=== PATIENT | female | born 1985 | race Asian ===

== ENCOUNTER 2023-04-26 13:30 | Outpatient (CLI) | payer OTHER ==
[~2023-04-26] VITALS: Ht 160 cm; Wt 72.7 kg
--- NOTE | 2023-04-26 13:42 | NUR ---
PT AMBULATORY TO LR5. CHANGED INTO CLEAN GOWN. FHR MONITOR/TOCO APPLIED. PT DENIES ANY REGULAR CONTRACTIONS, DECREASED MOVEMENT, OR LEAKING OF FLUID. PT CAME IN COMPLAINING OF VAGINAL BLEEDING. THIS RN DOES CERVICAL EXAM. SVE /-2. THIS RN NOTES CHUNKY BLOODY VAGINAL DISCHARGE ON EXAM GLOVE.
[2023-04-26] MEDS ORDERED: PRENATAL TABLET PO (13:56)
[2023-04-26 14:30] VITALS: BP 121/80; PULSE 106; TEMP 97.6
--- NOTE | 2023-04-26 16:35 | NUR ---
THIS RN REPEATS SVE. SVE 1-2//-2. CHUNKY VAGINAL DISCHARGE NOTED ON EXAM GLOVE. NO BLOODY SHOW OR VAGINAL BLEEDING ON CHUCKS PAD. [address] CARRENO WITH UPDATE. DR CARRENO GIVES ORDERS TO DISCHARGE PT HOME.
== END 2023-04-26 16:57 | disposition home or self-care (01) ==
LOC: LDRO 13:30
DX: O46.93 Antepartum hemorrhage, unspecified, third trimester (principal); Z3A.38 38 weeks gestation of pregnancy

== ENCOUNTER 2023-04-27 03:44 | Inpatient (IN) | payer OTHER ==
[~2023-04-27] VITALS: Ht 160 cm; Wt 72.7 kg
[2023-04-27] VITALS (34 sets, daily range): BP systolic 104–134; BP diastolic 51–78; PULSE 71–125; TEMP 97.7–98.7
[~2023-04-27 03:44] MED LIST: PRENATAL TABLET PO
[2023-04-27 05:40] LABS: BASO % 0.1 % (0.0-2.0); EOS # 0.1 K/mm3 (0.0-0.7); EOS % 0.7 % (0.0-4.0); GRAN # 4.2 K/mm3 (1.4-6.5); GRAN % 59.6 % (42.2-75.2); HEMATOCRIT 38.5 % (37.0-47.0); HEMOGLOBIN 13.2 g/dl (12.5-16.0); LYMPH # 2.2 K/mm3 (1.2-3.4); LYMPH % 30.8 % (20.0-51.0); MEAN CELL VOLUME 90 fl (80.0-100.0); MEAN CORPUSCULAR HEMOGLOBIN 31 pg (27-31); MEAN CORPUSCULAR HGB CONC 34 g/dl (33.0-37.0); MEAN PLATELET VOLUME 8.7 fl (7.4-10.4); MONO # 0.6 K/mm3 (0.1-0.6); MONO % 8.4 % (1.7-9.3); PLATELET COUNT 216 K/mm3 (130-400); REDCELL DISTRIBUTION WIDTH-CV 12.9 % (11.5-14.5)
--- NOTE | 2023-04-27 06:08 | NUR ---
0541- PATIENT SITTING ON EDGE OF BED. DIFFICULTY TRACING HEART RATE DUE TO MATERNAL POSITIOINING. PULSE OX APPLIED. 0548- ELIZABET OSPINA AT BEDSIDE. EXPLAINS PROCEDURE AND RISK OF EPIDURAL. 0603- TEST DOSE ADMINISTERED BY ELIZABET OSPINA. SEE ANESTHESIA RECORDS. 0608- PATIENT REPOSITIONED TO [facility]. PLAN OF CARE AND SAFETY PRECAUTIONS EXPLAIINED TO PATIENT AND .
--- NOTE | 2023-04-27 07:45 | NUR ---
0736- Dr Garcia at bedside. Discusses POC, answers questions.
--- NOTE | 2023-04-27 09:45 | NUR ---
SVE by this RN, Complete/0 station. Practive push x1, small amount of movement of head. Pt prepped for pushing. Sullivan removed without difficulty. Pt begins pushing with UCs, this RN remains at bedside with Pt, monitoring FHR tracing at bedside.
--- NOTE | 2023-04-27 10:15 | NUR ---
1002- Pt complains of exhaustion and not being able to push due to terrible pressure at diaphram, Pt requests pushing break. Pt assisted to LL with RLS.
--- NOTE | 2023-04-27 10:30 | NUR ---
1020- Pt calls this RN to bedside. Pt ready to push again. Pt assisted to lithotomy. Begins pushing with UCs. Minimal movement of head noted with most pushes, occationally has good movement. Pt continues to complain of exhaustion and upper abd pressure with pushing. 1030- Assisted Pt to for side-lying pushing. No change in pushing progress.
--- NOTE | 2023-04-27 11:15 | NUR ---
1100- Dr Garcia at bedside. US performed for positioning. evaluates pushing x1 UC. After discussion Pt wants to procede with vacuum assisted delivery. Pt and room prepped for delivery. Fuentes Monsivais, discharge specialist and Sera Capellan, nursery RN at bedside. 1112- S.cath with red korey by Dr Garcia. 1114- Vacuum placed on head without suction applied. 1116- Pt begins pushing with UC. Pressure into green area and traction noted by MD. 1117- VAD of viable male . Tended to by nursery on mother's abd. 1120- of placenta. Pitocin restarted at 333ml/hr. Fundas massaged to firm by . Laceration repaired. Pericare performed by this RN. Clean chux and ice pack under Pt. Pt tolerated delivery well. Infant remains [id number] with mother.
--- NOTE | 2023-04-27 14:00 | NUR ---
1400- Pt ambulates to bathroom independently with this RN standby. Voids 150mls. Pericare completed and explained. Pt ambulates to PP room with this RN, oriented to room. Call light at bedside.
--- NOTE | 2023-04-27 15:45 | NUR ---
154- Pt calls this RN to bedside, Pt on toilet. States she feels like she is full but only voided 200mls. Pt encouraged to return to bed and bladder scanner explained. 1550- Bladder scanner showed >650mls. 1600- Straight cath without difficutly. Bilateral labia swollen. 850mls noted. Pericare compelted. Pt encouraged to drink water and continue to use ice packs frequently.
[2023-04-28 03:26] VITALS: BP 118/65; PULSE 78; TEMP 98.5
[2023-04-28 07:25] LABS: HEMOGLOBIN 11.3 g/dl (12.5-16.0)
[2023-04-28 07:26] LABS: HEMATOCRIT 33.7 % (37.0-47.0)
[2023-04-28] MEDS ORDERED: ROXICODONE 55 MG/TAB PO (08:28)
[2023-04-28] MEDS ORDERED: IBU600 MG PO (08:28)
[2023-04-28] MEDS ORDERED: TYLENOL 500MG500 MG PO (08:29)
[2023-04-28 08:30] VITALS: BP 103/56; PULSE 65; TEMP 97.7
--- NOTE | 2023-04-28 09:37 | NUR ---
Initial visit; Patient thanked Riveting Machine Operator Automatic for stopping and offering congratulations for the of her son. Riveting Machine Operator Automatic thanked patient for choosing our hospital.
[2023-04-28 17:15] VITALS: BP 110/53; PULSE 74; TEMP 97.8
[2023-04-28 19:30] VITALS: BP 105/52; PULSE 81; TEMP 98
[2023-04-29 06:10] VITALS: BP 99/53; PULSE 84; TEMP 98
[2023-04-29 07:04] VITALS: BP 106/74; PULSE 76; TEMP 98.2
--- NOTE | 2023-04-29 09:51 | NUR ---
0900 CARSEAT STRAPS NOT IN CARSEAT PROPERLY. CARSEAT PUT BACK TOGETHER BY Chalino SANTIAGO RN BUT LOOKED FOR EXPIRATION AND CARSEAT IN 2018. CARSEAT TAKEN BACK TO PATIENT AND EXPLAINED THAT THEY NEED NEW CARSEAT BEFORE I CAN DISMISS HOME. PATIENT AND MOTHER DISCUSSING IN DIFFERENT LANGUAGE BUT STATED SHE VERBALLY UNDERSTOOD ME. PATIENT WILL CALL NOW. 0915 SHOWED UP TO OUR UNIT WITH NO CARSEAT. EXPLAINED TO PATIENT AGAIN THAT WE NEED A NEW CARSEAT THAT IS NOT BEFORE I CAN DISMISS TO HOME. SOCIAL SERVICE CALLED AT THIS TIME TO EXPLAIN NEED FOR CARSEAT. SHE CALLED [facility] AND THEY HAVE A CARSEAT BUT DAD WILL HAVE TO GO GET IT DUE TO NO OFFICER ABOUT TO BRING IT TO HOSPITAL. JUST TO UNIT WITH CARSEAT THAT THEY BORROWED FROM A FRIEND. PATIENT DOES NOT WANT TO WAIT OR GO GET CARSEAT. PATIENT STATES THEY WILL GO HOME NOW WITH THIS CARSEAT THAT BORROWED AND WILL GET NEW ONE LATER. PATIENT VERY UPSET. 0948 BABY PLACED IN BORROWED CARSEAT AND STRAPS ADJUSTED BY THIS NURSE AND TEACHING DONE WITH FAMILY. PATIENT HAS VERBAL UNDERSTANDING BUT APPEARS VERY UPSET. 0950 PATIENT FAMILY AND BABY SECURED IN CARSEAT WALKED TO CAR BY UNIT [employer] AND PROPERLY PLACED IN CAR AT THIS TIME.
--- NOTE | 2023-04-29 15:29 | NUR ---
Forestry And Wildlife Manager was contacted by JUAN Roger who advised patient is ready to discharge with her baby, however their carseat appeared to be broken and was also . Acacia advised family was not willing to go purchase another carseat as they were worried about the weather and wanted to leave immediately. JAREN contacted [facility] [employer] and was able to secure a new carseat for patient, however there was not an officer to deliver it to patient's room until later. [facility] Dispatcher, Amada advised family could pick it up if they don't want to wait. JAREN updated Acacia and made way to OB. Once JAREN arrived, Acacia advised family was not willing to wait or go pick it up. Acacia advised family had a friend bring in a carseat, however this friend also had a and the carseat would have to be returned to them. JAREN observed family leave the unit in friend's carseat, which was determined not to be and was appropriate. JAREN discussed the above with Dr. Shrestha, who also verbalized concerns about patient's resistent to timely follow up with Logistics System Engineer as well. Dr. Shrestha described that family also needed education on SIDS as they have multiple blankets on baby and at one point, patient had her coat covering baby resulting in baby having a temp of 100. JAREN made report to CPS (intake #[id number]) requesting follow up for additional education and resources.
== END 2023-04-29 09:50 | disposition home or self-care (01) | DRG 806 ==
LOC: LDRO 03:44 → LDR 03:56 → LDRO 05:19 → LDR 05:20 → OB 14:30
PROVIDERS: Student in an Organized Health Care Education/Training Program; ADMIT Obstetrics & Gynecology
PROC: 10D07Z6 Extraction of Products of Conception, Vacuum, Via Natural or Artificial Opening (ICD-10-PCS; principal; 2023-04-27)
PROC: 0KQM0ZZ Repair Perineum Muscle, Open Approach (ICD-10-PCS; 2023-04-27)
DX: O24.420 Gestational diabetes mellitus in childbirth, diet controlled (principal); B18.1 Chronic viral hepatitis B without delta-agent; Z37.0 Single live birth; O98.42 Viral hepatitis complicating childbirth; Z86.16 Personal history of COVID-19; Z3A.38 38 weeks gestation of pregnancy; O70.1 Second degree perineal laceration during delivery; O75.81 Maternal exhaustion complicating labor and delivery; Z23 Encounter for immunization
CPT/HCPCS: J2590; J2795; J7120